=== PATIENT | male | born 1980 | race Caucasian/White ===

== ENCOUNTER 2016-09-15 02:54 | Emergency (ER) | payer OTHER ==
--- NOTE | 2016-09-15 02:58 | PDOC ---
History of Present Illness - General Chief Complaint: Pain, Acute Stated Complaint: WOKE UP WEDNESDAY MORNING PAIN TO RIGHT ANKLE Time Seen by Provider: 09/15/16 02:57 - History of Present Illness Initial Comments: This 36-year-old man with no significant past medical history except for anxiety presents with 2 day history of spontaneous pain/swelling/faint redness of the right ankle. Patient states that he awakened 2 days ago and noted pain . No history of trauma or wound in the area. He had been seen elsewhere 2 weeks ago with left wrist inflammation that was thought either to be gout or cellulitis. The patient states that he did not want to be admitted to the hospital and the pain became somewhat better. Patient has a strong family history of gout(father/uncle) He admits to drinking alcohol within the last week and follows no specific diet. Past History - Past Medical History Allergies/Adverse Reactions: Allergies Allergy/AdvReac Type Severity Reaction Status Date / Time No Known Allergies Allergy Verified 09/15/16 02:56 Home Medications: Ambulatory Orders No Home Medications 0 dose .ROUTE UTDICT 12/10/12 Clonazepam [KlonoPIN] 0.5 mg PO DAILY 09/15/16 Colchicine [Colcrys -] 0.6 mg PO BID #14 tablet 09/15/16 - Immunization History Td Vaccination: Yes Immunization Up to Date: Yes - Psycho/Social/Smoking Cessation Hx Anxiety: Yes Suicidal Ideation: No Smoking Status: No Smoking History: Never smoked Number of Cigarettes Smoked Daily: 0 Review of Systems - Review of Systems Able to Perform ROS?: Yes Comments:: 12 point review of systems is negative except for what is noted in the history of present illness *Physical Exam - Physical Exam Comments: GENERAL:adult male,alert and oriented X3; mild distress secondary to right ankle pain HEAD: Normal with no signs of trauma. EYES: PERRLA, EOMI, sclera anicteric, conjunctiva clear. ENT: Ears normal, nares patent, oropharynx clear without exudates. Dry mucous membranes. NECK: Normal range of motion, supple without lymphadenopathy, JVD, or masses. LUNGS: Breath sounds equal, clear to auscultation bilaterally. No wheezes, and no crackles. HEART:Regular rate and rhythm, normal S1 and S2 without murmur, rub or gallop. ABDOMEN:.normal bowel sounds No guarding,tenderness or rebound.No masses No distention. EXTREMITIES: Right lower extremityankle : faint erythema, moderate edema, marked tenderness Just distal to the lateral and medial malleolus; no fluctuance no wounds; no lymphangitic streaking Remainder of the extremity exam is normal NEUROLOGICAL: Cranial nerves II through XII grossly intact. Normal speech. No focal neurological deficits Medical Decision Making - Medical Decision Making Clinical presentation most consistent with acute gout. Right ankle/foot x-ray performed to evaluate for occult injury. No evidence of fracture or dislocation. There is soft tissue swelling around both lateral and medial malleolus. Patient given indomethacin 50 mg by mouth. Patient states that he had been given this in the past by his neurologist for headaches. He states he had taken this without much effect Colchicine 1.2 mg also given to the patient with prescription for 0.6 mg twice a day sent to his pharmacy. The patient should follow-up with his general doctor (patient states that he goes to "[facility]" for his general medical care) within 48 hours The patient has also been given crutches for ambulation. He asked for and was given one tablet of Percocet 5/325 for pain now. Patient arrived in the ER by taxi and He will be taking a taxi home. *DC/Admit/Observation/Transfer Diagnosis at time of Disposition: Acute gout of right ankle Qualifiers: Gout etiology: unspecified cause Qualified Code(s): M10.9 - Gout, unspecified - Discharge Dispostion Disposition: HOME Condition at time of disposition: Stable - Prescriptions Prescriptions: Colchicine [Colcrys -] 0.6 mg PO BID #14 tablet - Patient Instructions Printed Discharge Instructions: Gout Additional Instructions: drink plenty of fluids avoid alcohol/red meats colchicine 0.6 mg twice a day can also take indocin 25 mg twice a day with food followup with your general doctor tomorrow as discussed return to ER if you worsening pain/swelling/redness
[2016-09-15 03:07] VITALS: BP 136/93; PULSE 108; TEMP 99; BMI 24.3
[2016-09-15] MEDS ORDERED: INDOMETHACIN 50 MG CAPSULE PO ONE (03:47)
[2016-09-15] MEDS ORDERED: INDOMETHACIN 25 MG CAPSULE ONE (03:50)
[2016-09-15] MEDS ORDERED: OXYCODONE/APAP 5/325MG COMBO TABLET PO ONE (04:00)
[2016-09-15] MEDS ORDERED: OXYCODONE/APAP 5/325MG COMBO TABLET ONE (04:01)
[2016-09-15] MEDS ORDERED: COLCHICINE 0.6 MG TABLET (FP) PO ONE (04:04)
[2016-09-15] MEDS ORDERED: COLCHICINE 0.6 MG TABLET (FP) ONE (04:13)
== END 2016-09-15 04:23 | disposition home or self-care (01) ==
LOC: FER 02:54
DX: M10.9 Gout, unspecified (principal)
CPT/HCPCS: 73610-TC-RT; 73630-TC-RT; 99281-25

== ENCOUNTER 2018-05-09 00:44 | Emergency (ER) | payer OTHER ==
[2018-05-09 00:49] VITALS: BP 122/80; PULSE 88; TEMP 98.8; BMI 23.6
[2018-05-09] MEDS ORDERED: TETANUS AND DIPHTHERIA TOXOID 0.5 ML DISP.SYRIN IM ONE (01:27)
[2018-05-09] MEDS ORDERED: LIDOCAINE HCL 2% (20ML MULTI-DOSE VIAL) NR ONE (01:27)
[2018-05-09] MEDS ORDERED: LIDOCAINE HCL 2% (50ML VIAL) SQ ONE (01:27)
[2018-05-09] MEDS ORDERED: DIPHTH,PERTUSS(ACELL),TET 0.5 ML DISP.SYRIN IM ONE (01:28)
[2018-05-09] MEDS ORDERED: CEFAZOLIN 1 GM/D5W 1 GM/50 ML BAG IVPB ONE (02:04)
--- NOTE | 2018-05-09 02:04 | PDOC ---
History of Present Illness - General Chief Complaint: Laceration Stated Complaint: LACERATION Time Seen by Provider: 05/09/18 01:02 - History of Present Illness Initial Comments: 05/09/18 03:16 punched glass window unsure if there are debirs within wound unsure of last tetanus Timing/Duration: reports: just prior to arrival Severity: Yes: severe Location: reports: extremities Modifying Factors: improves with: other (soaking through towel) Associated Symptoms: denies: headache, paresthesia Past History - Past Medical History Allergies/Adverse Reactions: Allergies Allergy/AdvReac Type Severity Reaction Status Date / Time No Known Allergies Allergy Verified 05/09/18 00:46 Home Medications: Ambulatory Orders No Home Medications 0 dose .ROUTE UTDICT 12/10/12 Colchicine [Colcrys -] 0.6 mg PO BID #14 tablet 09/15/16 clonazePAM [KlonoPIN] 0.5 mg PO DAILY 09/15/16 Cephalexin [Keflex] 500 mg PO QID #28 capsule 05/09/18 Naproxen 500 mg PO BID PRN #20 tablet 05/09/18 COPD: No Psychiatric Problems: Yes (Anxiety) - Immunization History Td Vaccination: Yes Immunization Up to Date: Yes - Suicide/Smoking/Psychosocial Hx Smoking Status: No Smoking History: Never smoked Have you smoked in the past 12 months: No Number of Cigarettes Smoked Daily: 0 Information on smoking cessation initiated: No Hx Alcohol Use: No Drug/Substance Use Hx: No Substance Use Type: None Review of Systems - Review of Systems All Other Systems: Reviewed and Negative *Physical Exam - Vital Signs Last Vital Signs Temp Pulse Resp BP Pulse Ox 98.8 F 88 18 122/80 100 05/09/18 00:47 05/09/18 00:47 05/09/18 00:47 05/09/18 00:47 05/09/18 00:47 - Physical Exam General Appearance: Yes: Nourished, Appropriately Dressed HEENT: positive: Normal Voice Neck: negative: Tender Respiratory/Chest: positive: Lungs Clear Cardiovascular: positive: Regular Rhythm Musculoskeletal: positive: Other (R wrist: deep 10cm laceration to muscle; multiple severed superficial tendons; no fb identified; extensive venous oozing) Extremity: positive: Normal Capillary Refill Integumentary: positive: Normal Color Neurologic: positive: Other (sensation grossly intact to light touch). negative : Numbness Moderate Sedation - Procedure Monitoring Vital Signs: Procedure Monitoring Vital Signs Temperature 98.8 F 05/09/18 00:47 Pulse Rate 88 05/09/18 00:47 Respiratory Rate 18 05/09/18 00:47 Blood Pressure 122/80 05/09/18 00:47 O2 Sat by Pulse Oximetry (%) 100 05/09/18 00:47 Procedures - Splinting Splint Location: Right: Wrist Pre-Proc Neuro Vasc Exam: normal Hand-Made Type: orthoglass Splint Type: Yes: Volar Post-Proc Neuro Vasc Exam: normal - Laceration/Wound Repair Right Wrist Wound Length: 7.6 to 12.5 cm Wound Explored: no foreign body present Wound's Depth, Shape: into muscle, irregular, stellate, contused tissue Irrigated w/ Saline: Yes Anesthesia: 2% Lidocaine Wound Debrided: minimal Wound Repaired With: Sutures Suture Size/Type: 5:0, nylon Number of Sutures: 12 Sterile Dressing Applied: Yes Splint Applied: Yes ED Treatment Course - RADIOLOGY Radiology Studies Ordered: Category Date Time Status WRIST- RIGHT [RAD] Stat Radiology 05/09/18 01:03 Ordered Medical Decision Making - Medical Decision Making 05/09/18 03:21 deep laceration plain films reviewed: no fb, as read by me, referred to radiology for definitive repair wound closed emergently to control bleeding tetanus abx volar splint plastics fu for definitive repair abx prophylaxis analgesia *DC/Admit/Observation/Transfer Diagnosis at time of Disposition: Laceration - Discharge Dispostion Disposition: HOME - Prescriptions Prescriptions: Cephalexin [Keflex] 500 mg PO QID #28 capsule Naproxen 500 mg PO BID PRN #20 tablet PRN Reason: Pain - Referrals Referrals: Lance Pruett MD [Staff Physician] - Hoang Wilkerson MD [Staff Physician] - - Patient Instructions Printed Discharge Instructions: DI for Laceration Repair - Post Discharge Activity
[2018-05-09] MEDS ORDERED: SODIUM CHLORIDE 0.9% 500 ML INFUS.BAG IV ONE (02:05)
[2018-05-09] MEDS ORDERED: ceFAZolin SODIUM 1 GM VIAL ONE (02:36)
== END 2018-05-09 03:30 | disposition home or self-care (01) ==
LOC: FER 00:44
PROC: 3E0234Z Introduction of Serum, Toxoid and Vaccine into Muscle, Percutaneous Approach (ICD-10-PCS; principal; 2018-05-09)
PROC: 0HQFXZZ Repair Right Hand Skin, External Approach (ICD-10-PCS; 2018-05-09)
PROC: 2W3CX1Z Immobilization of Right Lower Arm using Splint (ICD-10-PCS; 2018-05-09)
DX: S61.511A Laceration without foreign body of right wrist, initial encounter (principal); W22.8XXA Striking against or struck by other objects, initial encounter; Y93.89 Activity, other specified; Y92.89 Other specified places as the place of occurrence of the external cause; F41.9 Anxiety disorder, unspecified
CPT/HCPCS: 73110-TC-RT-FY; 99282-25

== ENCOUNTER 2018-05-22 16:11 | Emergency (ER) | payer OTHER ==
--- NOTE | 2018-05-22 16:26 | PDOC ---
Suture Removal/Wound Check HPI - History of Present Illness Chief Complaint: Suture/Staple Removal (other) Stated Complaint: SUTURE REMOVAL Time Seen by Provider: 05/22/18 16:25 History Source: Yes: Patient Exam Limitations: Yes: No Limitations - Onset of Previous Treatment Comment:: 05/22/18 16:59 38 YOM presenting with rt arm suture removal s/p laceration against glass on ~2 weeks ago. large laceration repaired with sutures temporarily, told to f/u hand/plastics, which he did earlier this week, dc'd on keflex, which he did not finish tdap up to date +right arm pain, no paresthesias, weakness, discharge or odor. no erythema or purulence has been cleaning and applying the hydrogen peroxide. Past History - Past Medical History Allergies/Adverse Reactions: Allergies Allergy/AdvReac Type Severity Reaction Status Date / Time No Known Allergies Allergy Verified 05/09/18 00:46 Home Medications: Ambulatory Orders Colchicine [Colcrys -] 0.6 mg PO BID #14 tablet 09/15/16 clonazePAM [KlonoPIN] 0.5 mg PO DAILY 09/15/16 Cephalexin [Keflex] 500 mg PO QID #28 capsule 05/09/18 Naproxen 500 mg PO BID PRN #20 tablet 05/09/18 COPD: No Psychiatric Problems: Yes (Anxiety) - Immunization History Td Vaccination: Yes Immunization Up to Date: Yes - Suicide/Smoking/Psychosocial Hx Smoking Status: No Smoking History: Never smoked Have you smoked in the past 12 months: No Number of Cigarettes Smoked Daily: 0 Information on smoking cessation initiated: No Hx Alcohol Use: No Drug/Substance Use Hx: No Substance Use Type: None *Review of Systems - Review of Systems Able to Perform ROS?: Yes Comments:: 05/22/18 17:04 Review of systems Constitutional: no fevers or chills. MUSCULOSKELETAL: No joint pain and swelling. SKIN: +Rt wrist laceration with sutures intact. no redness or skin changes, no discharge, no rash. Hematologic: no easy bruising/bleeding. NEUROLOGIC: No headache, dizziness, LOC or altered mental status. No weakness, numbness or tingling. Allergic/Immunologic: no allergies All other systems reviewed and negative, or as documented in HPI. *Physical Exam - Vital Signs Last Vital Signs Temp Pulse Resp BP Pulse Ox 98.1 F 103 H 20 115/81 100 05/22/18 16:11 05/22/18 16:11 05/22/18 16:11 05/22/18 16:11 05/22/18 16:11 - Physical Exam Comments: 05/22/18 17:04 Physical exam: General: Well appearing, awake and alert, NAD. Vascular: 2+ radialis pulses bilaterally and symmetric. no arm edema. MSK: no edema, SINHA x4, ROM intact. No clubbing or cyanosis. normal bulk and tone. distal epoxy specialist strength 5/5. Neuro: alert, median/ulnar and radial nerve sensation grossly intact bilaterally, particularly over RUE Skin: warm and well perfused, cap refill <2 sec, normal color, +large sutured laceration/flap, curvilinear over right distal forearm on the palmar surface, x 12 stitches, middle area of scarred/hardened fat tissue as well as wound dehiscence. no purulence. no erythema or streaking. +tender to palp. Medical Decision Making - Medical Decision Making 05/22/18 17:06 Verbal consent was obtained.Wound well approximated, no erythema, induration, or discharge noted. 12 sutures completely removed in a sterile fashion. Patient tolerated procedure well, no complications. Patient advised to look for and return for any signs of infection such as redness, swelling, discharge, or worsening pain. +wound dehiscence noted centrally, no purulence or s/s infection NVI. analgesia given, initial tachy likely anxiety and pain related, so provided ibuprofen advised to complete keflex plastics/hand referral emphasized for revision of wound dehiscence. as max [address] weeks [address]ures in place. risk of infection if kept in longer, so removed wound dehiscence approximated with topical steristrips. Pt informed of my clinical impression, treatment recommendations and disposition plan. All questions answered to patient's satisfaction and expressed understanding and comfort with this. Reasons for returning to the ED sooner discussed including new or persistent/worsening symptoms with the patient otherwise, follow up with primary care physician and hand/plastics surgeon. At the time of discharge, the patient is alert, clinically improved, tolerating po and verbalizes understanding of instructions, satisfied with the care received and felt comfortable with the plan. Patient does not suffer from an acute life-threatening medical condition at this time he is safe for outpatient follow-up. 04/07/19 17:07 05/22/18 17:07 05/22/18 17:09 05/22/18 17:09 *DC/Admit/Observation/Transfer Diagnosis at time of Disposition: Visit for suture removal, Wound dehiscence - Discharge Dispostion Disposition: HOME Condition at time of disposition: Improved Decision to Admit order: No - Referrals Referrals: Mariano Gutierres MD [Staff Physician] - Hoang Wilkerson MD [Staff Physician] - Lance Pruett MD [Staff Physician] - - Patient Instructions Printed Discharge Instructions: DI for Wound Dehiscence, DI for Suture Removal Additional Instructions: AFTER the stitches are removed: Clean your wound as directed. maintain the steri strips for wound approximation, the small stickers provided keep the dressings, wear the volar splint to avoid excessive movement finish your keflex course Carefully wash your wound with soap and water. Pat the area dry with a clean towel. Protect your wound. Your wound can swell, bleed, or split open if it is stretched or bumped. You may need to wear a bandage that supports your wound until it is completely healed. Minimize your scar. Use sunblock if your wound is exposed to the sun. Apply it every day after the stitches are removed. This will help prevent skin discoloration. you must see a plastic surgeon/hand specialist for wound dehiscence and revision of your forearm laceration. - Post Discharge Activity
[2018-05-22 16:27] VITALS: BP 115/81; PULSE 103; TEMP 98.1; BMI 24.3
[2018-05-22] MEDS ORDERED: IBUPROFEN 600 MG TABLET (FP) PO ONE ×2 (16:56→17:03)
== END 2018-05-22 17:10 | disposition home or self-care (01) ==
LOC: FER 16:11
DX: Z48.02 Encounter for removal of sutures (principal); T81.30XA Disruption of wound, unspecified, initial encounter
CPT/HCPCS: 99281-25

== ENCOUNTER 2018-12-27 18:37 | Emergency (ER) | payer OTHER ==
[2018-12-27 18:41] VITALS: BMI 25.8
[2018-12-27 19:08] VITALS: BP 136/93; PULSE 97; TEMP 99.8
[2018-12-27] MEDS ORDERED: PIPERACILLIN/TAZOB 3.375 GM 3.375 GM in DEXTROSE 5%-WATER - 50 ML IVPB ONE (19:16)
[2018-12-27] MEDS ORDERED: VANCOMYCIN 1 GM in D5W (PRE-DOCKED) 1,000 MG/250 ML IVPB ONE (19:16)
[2018-12-27] MEDS ORDERED: ACETAMINOPHEN 500 MG TABLET (FP) PO ONE (19:26)
[2018-12-27] MEDS ORDERED: PIPERACILLIN/TAZOBACTAM 3.375 GM VIAL IVPB ONE ×2 (19:33→19:34)
[2018-12-27] MEDS ORDERED: VANCOMYCIN 1,000 MG VIAL (RESTRICTED TO ID ONLY) ONE (19:33)
[2018-12-27 19:48] LABS: BASO % 0.5 % (0-2.0); EOS % 2.7 % (0-4.5); HEMATOCRIT 39.7 % (35.4-49); HEMOGLOBIN 13.3 GM/dl (11.7-16.9); LYMPH % 22.1 % (8-40); MCH 30.4 pg (25.7-33.7); MCHC 33.6 g/dl (32.0-35.9); MEAN CELL VOLUME 90.3 fl (80-96); MEAN PLT VOLUME 8.1 fl (7.5-11.1); MONO % 14.9 % (3.8-10.2); NEUT % 59.8 % (42.8-82.8); PLATELET COUNT 241 K/MM3 (134-434); RBC 4.39 M/mm3 (4.00-5.60); RDW 12.6 % (11.9-15.9); WHITE BLOOD COUNT 6.2 K/mm3 (4.0-10.8)
[2018-12-27] MEDS ORDERED: morphine CARPU-JECT 2 MG/1 ML DISP.SYRIN IVPUSH ONE ×2 (19:48→20:29)
[2018-12-27] MEDS ORDERED: morphine SULFATE 4 MG/ML VIAL ONE (19:51)
[2018-12-27] MEDS ORDERED: IBUPROFEN 600 MG TABLET (FP) PO ONE ×2 (19:58)
[2018-12-27 19:59] LABS: ALBUMIN 4.4 g/dl (3.4-5.0); BILIRUBIN,TOTAL 0.4 mg/dl (0.2-1); CALCIUM 9.5 mg/dl (8.5-10); CREATININE 0.8 mg/dl (0.55-1.3)
--- NOTE | 2018-12-27 20:45 | PDOC ---
Documentation entered by Mi Fuller SCRIBE, acting as scribe for Deloris Dasilva MD. Deloris Dasilva MD: This documentation has been prepared by the Jonny alexis Adrianna, SCRIBE, under my direction and personally reviewed by me in its entirety. I confirm that the documentation accurately reflects all work, treatment, procedures, and medical decision making performed by me. History of Present Illness - General Chief Complaint: Pain, Acute Stated Complaint: LEFT HAND SWELLING/ PAIN History Source: Patient Exam Limitations: No Limitations - History of Present Illness Initial Comments: HPI The patient is a 38 year old male, with a significant PMH of anxiety and gout, who presents to the ED for evaluation of left hand pain for one week. Patient notes he developed pain to the dorsal aspect of the left hand. He states that the pain progressively worsened over the week, and he developed warmth, swelling , and redness yesterday. Patient notes he originally attributed his symptoms to his gout, but notes no relief with his medications. He was seen at [facility] earlier today for the new onset swelling, redness, and warmth, and was advised to come to the ED for further evaluation. He does report a well-healing abrasion to the left elbow that he obtained one month ago, and is unsure if it's related. PAST MEDICAL HISTORY: Anxiety, gout PAST SURGICAL HISTORY: no significant history FAMILY HISTORY: no pertinent history SOCIAL HISTORY: Pt lives with family and is employed. Weekly EtOH use. No tobacco or illicit drug use. MEDICATIONS: reviewed ALLERGIES: As per nursing notes Adult ROS General: No fevers or chills, no weakness, no weight loss HEENT: No change in vision. No sore throat,. No ear pain CardioVascular: No chest pain or shortness of breath Respiratory:No cough, or wheezing. Gastrointestinal: no nausea, vomiting, diarrhea or constipation, No rectal bleeding Genitourinary: No dysuria, hematuria, or frequency Musculoskeletal: +Dorsal left hand pain, swelling, erythema, and warmth. Neurologic: No headache, vertigo, dizziness or loss of consciousness Psychiatric: nor depression Skin: No rashes or easy bruising Endocrine: no increased thirst or abnormal weight change Allergic: no skin or latex allergy All other systems reviewed and normal Adult Exam: General: Well-nourished well-developed individual, no acute distress HEENT: Throat: Normal, tonsils normal, no erythema or exudate Neck: Supple, no meningeal signs, no lymphadenopathy Eyes::Pupils equal reactive and round, extraocular motion intact Chest: Nontender to palpation Cardiac: S1-S2 normal, regular rate and rhythm, no murmurs rubs or gallops Respiratory: Lungs clear to auscultation bilateral Abdomen: Soft, nondistended, normal bowel sounds, nontender to palpation diffusely Extremities: +Marked swelling with increasing warmth and erythema to the dorsal aspect of the left hand. +Dorsum of the left hand diffusely tender to palpation. +Decreased ROM of the digits of the left hand secondary to discomfort and swelling of the dorsum. Capillary refill is normal. Sensation distally intact. +Abrasion to the left elbow appears to be healing with no associated erythema or infection. No ascending lymphadenitis, however there is some extended warmth and mild erythema partway up the forearm. Warm, dry, no cyanosis, clubbing. Skin: No rashes Neuro: Alert and oriented x3, nonfocal exam, grossly intact, normal gait Psych: Normal mood and affect 12/27/18 19:24 This is a 38-year-old male who with history of gout who has had a week of progressive pain and swelling of the left hand. Patient denied any trauma to the hand however does have some an abrasion to the elbow on that arm. Patient' s hand is red hot and swollen and he does have a low-grade temperature. Patient is otherwise healthy. Labs obtained including CBC, comp, blood cultures Patient given IV fluids and IV antibiotics. Past History - Past Medical History Allergies/Adverse Reactions: Allergies Allergy/AdvReac Type Severity Reaction Status Date / Time No Known Allergies Allergy Verified 12/27/18 18:38 Home Medications: Ambulatory Orders clonazePAM [KlonoPIN] 0.5 mg PO DAILY 09/15/16 Naproxen 500 mg PO BID #28 tablet 12/27/18 Sulfamethoxazole/Trimethoprim [Bactrim DS -] 1 tab PO BID #20 tablet 12/27/18 COPD: No Psychiatric Problems: Yes (Anxiety) - Immunization History Td Vaccination: Yes Immunization Up to Date: Yes - Psycho Social/Smoking Cessation Hx Smoking Status: No Smoking History: Never smoked Have you smoked in the past 12 months: No Number of Cigarettes Smoked Daily: 0 'Breaking Loose' booklet given: 05/22/18 Hx Alcohol Use: Yes (WEEKLY) Drug/Substance Use Hx: No Substance Use Type: None *Physical Exam - Vital Signs Last Vital Signs Temp Pulse Resp BP Pulse Ox 0/0 L 12/27/18 18:38 ED Treatment Course - LABORATORY CBC & Chemistry Diagram: 12/27/18 19:30 12/27/18 19:30 Discharge - Discharge Information Problems reviewed: Yes Clinical Impression/Diagnosis: Cellulitis of left hand excluding fingers and thumb Condition: Stable Disposition: HOME - Admission No - Additional Discharge Information Prescriptions: Naproxen 500 mg PO BID #28 tablet Sulfamethoxazole/Trimethoprim [Bactrim DS -] 1 tab PO BID #20 tablet - Follow up/Referral Referrals: Davion Taylor MD [Primary Care Provider] - - Patient Discharge Instructions Additional Instructions: Take naproxen twice a day with food as needed for the pain. For the infection take Bactrim 1 tablet twice a day for 10 days. Rest and elevate the hand is much as possible for the next 48 hours if possible stay home and do not go to work. If you are worse in 24 hours or not improved in 48 hours it is important that you either see your doctor or come back to the emergency department for reevaluation. As you may need to be admitted for IV antibiotics. Return to the emergency department immediately with ANY new, persistent or worsening symptoms. Continue any medications as previously prescribed by your physician. You should follow up with your primary doctor as soon as possible regarding today's emergency department visit. . Please make sure your doctor reviews the results of your emergency evaluation. Thank you for coming to the Emergency Department today for your care. It was a pleasure to see you today. Please note that your evaluation is INCOMPLETE until you follow-up with your doctor. - Post Discharge Activity Work/Back to School Note: Back to Work
== END 2018-12-27 21:37 | disposition home or self-care (01) ==
LOC: FER 18:37
PROC: 3E033NZ Introduction of Analgesics, Hypnotics, Sedatives into Peripheral Vein, Percutaneous Approach (ICD-10-PCS; principal; 2018-12-27)
PROC: 3E03329 Introduction of Other Anti-infective into Peripheral Vein, Percutaneous Approach (ICD-10-PCS; 2018-12-27)
DX: L03.114 Cellulitis of left upper limb (principal); L03.012 Cellulitis of left finger; F41.9 Anxiety disorder, unspecified
CPT/HCPCS: 36415; 80053; 83605; 85025; 96365; 96368; 96375; 99282-25